=== PATIENT | female | born 1970 | race Caucasian/White ===

== ENCOUNTER 2023-02-15 14:03 | Outpatient (RCR) | payer OTHER | END 2023-02-25 | LOC: WSOH | DX: M25.511 Pain in right shoulder (principal); I10 Essential (primary) hypertension; Y99.0 Civilian activity done for income or pay ==

== ENCOUNTER 2023-05-04 14:38 | Outpatient (RCR) | payer OTHER | END 2023-05-28 | disposition home or self-care (01) | LOC: WSOH | DX: M25.511 Pain in right shoulder (principal); I10 Essential (primary) hypertension; Y99.0 Civilian activity done for income or pay ==

== ENCOUNTER 2023-05-31 14:30 | Outpatient (RCR) | payer OTHER | END 2023-06-28 | disposition home or self-care (01) | LOC: WSOH | DX: M25.511 Pain in right shoulder (principal); I10 Essential (primary) hypertension; Y99.0 Civilian activity done for income or pay ==